=== PATIENT | female | born 1985 ===

== ENCOUNTER → 2016-06-14 | Outpatient (CLI) | payer BC ==
[2016-06-14 15:15] VITALS: BP 113/78
== END ==
LOC: MHUC 14:55
PROVIDERS: ATTEND Nurse Practitioner
DX: N39.0 Urinary tract infection, site not specified (principal); N89.8 Other specified noninflammatory disorders of vagina; B95.7 Other staphylococcus as the cause of diseases classified elsewhere
CPT/HCPCS: 81002; 81025; 99213

== ENCOUNTER → 2016-07-09 | Outpatient (CLI) | payer BC ==
[~2016-07-09] MED LIST: METR500T17 PO; SULF-221 PO
[2016-07-09 14:47] VITALS: BP 129/82
--- NOTE | 2016-07-09 14:47 | Urgent Care T Sheet Gen (E) ---
Intake General Temperature (Fahrenheit): 98.1 Pulse: 104 Blood Pressure Systolic: 129 Blood Pressure Diastolic: 82 Respirations: 20 SPO2: 98 Description of Symptoms Patient presents for a recheck of her vaginal discharge. Was seen on June 14 for discharge. UA and culture was done showing Staph saprophyticus and susceptibility to Bactrim, which she was placed on. Patient states the discharge persisted despite treatment. She wonders if she has BV. Denies any sores, dysuria, increased voiding frequency, or LBP. Patient states the vaginal discharge has an odor but can't describe what it smells like. States it doesn't really have a color. History of Present Illness Allergies: Coded Allergies: Erythromycin Base (Verified Allergy, 08/09/12) Home Meds Active Scripts Sulfamethoxazole/Trimethoprim (Sulfamethoxazole/Trimethoprim DS 800mg/160mg)1 Each Tablet1 Each PO BID #14 TAB Prov:ALICIA VILLAGOMEZ Deshawn TALAVERA () 06/14/16 Respiratory Constitutional Symptoms: No syptoms reported EENTM: No symptoms reported Respiratory: No symptoms reported Cardiovascular: No symptoms reported Genitourinary: Discharge present All Other Systems Reviewed Remaining Systems: All other systems reviewed with negative findings Past Grlxuze-Yjujzj-Ghnjqp Hx Patient's Social History Alcohol Use: Denies Use Surgeries/Hospitalizations Hospitalization/Surgery Hx: LAP EPITOPIC PREG. Respiratory Respiratory History: None Cardiovascular Cardiovascular History: None Reproductive System Sexually Transmitted Diseases: No Gastrointestinal GI/Endocrine History: None Diabetes Diabetes: No HEENT Impaired Vision: Contacts Hearing Impaired: None Integumentary Integumentary History: Recent skin changes Comment: RED AREA TO RT WRIST Psychosocial Behavior Disorders: None Physical Exam Physical Exam General Appearance: WD/WN No apparent distress Departure Urgent Care Impression Impression: Primary Impression: Vaginal discharge Departure Disposition: HOME OR SELF-CARE Condition: Stable Additional Instructions: Long discussion with patient regarding treatment, workup, etc. I offered to perform a pelvic exam since I wasn't the one who initially saw her. She declined stating "Alicia already did all that". She is scheduled to see her OB-ANIMAL ATTENDANT for her yearly exam on August 02 however didn't want to wait that long regarding the discharge. With her history, previous exam and treatment, I believe the patient has bacterial vaginosis and that is causing her persistent discharge. She did have a UTI, which was treated appropriately per [facility]. I have started her on Flagyl for treatment of probable BV. If symptoms persist despite treatment, I would recommend seeing her OB-ANIMAL ATTENDANT for a more focused workup /evaluation. Patient understands DC instructions. All questions were answered. Scripts Metronidazole (Flagyl)500 Mg [id number] Mg PO BID #14 TAB Ref 0 Prov:SHANNEN RODRIGUEZ 07/09/16 End of report . SHANNEN RODRIGUEZ Jul 09, 2016 14:47
== END ==
LOC: MHUC 14:24
PROVIDERS: ATTEND Physician Assistant
DX: N89.8 Other specified noninflammatory disorders of vagina (principal)
CPT/HCPCS: 99212